=== PATIENT | male | born 1995 | race Caucasian/White ===

== ENCOUNTER 2020-07-22 01:34 | Emergency (ER) | payer OTHER ==
[~2020-07-22] VITALS: Ht 165.1 cm; Wt 84.4 kg
[2020-07-22 01:41] VITALS: Ht 165.1 cm; Wt 84.4 kg
[2020-07-22] MEDS ORDERED: ACYCLOVIR800 MG PO (02:20)
[2020-07-22] MEDS ORDERED: PREDNISONE20 MG PO (02:20)
[2020-07-22 02:45] VITALS: BP 128/85
== END 2020-07-22 02:45 | disposition home or self-care (01) ==
LOC: ED 01:34
DX: G51.0 Bell's palsy (principal)
CPT/HCPCS: J7512